=== PATIENT | male | born 2000 | race Caucasian/White ===

== ENCOUNTER 2018-01-23 19:10 | Emergency (ER) | payer SELFPAY ==
[~2018-01-23] VITALS: Ht 188 cm; Wt 84.3 kg
[2018-01-23 19:14] VITALS: BP 122/76
== END 2018-01-23 19:50 | disposition home or self-care (01) ==
LOC: ED 19:20
DX: S80.811A Abrasion, right lower leg, initial encounter (principal); X58.XXXA Exposure to other specified factors, initial encounter; Y93.89 Activity, other specified; Y99.8 Other external cause status; Y92.89 Other specified places as the place of occurrence of the external cause
CPT/HCPCS: 99281